=== PATIENT | female | born 1985 ===

== ENCOUNTER 2022-12-05 06:16 | Day surgery (SDC) | payer OTHER ==
[~2022-12-05 06:16] MED LIST: TRISPRINTEC PO
[2022-12-05] MEDS ORDERED: NAPR500T14 PO (08:34)
[2022-12-05] MEDS ORDERED: MORGIDOX100 MG PO (08:34)
== END 2022-12-05 13:25 | disposition home or self-care (01) ==
LOC: CIR.AMB 06:16
PROVIDERS: ATTEND Obstetrics & Gynecology
DX: N93.8 Other specified abnormal uterine and vaginal bleeding (principal); D25.0 Submucous leiomyoma of uterus; N84.0 Polyp of corpus uteri; Z20.822 Contact with and (suspected) exposure to COVID-19

== ENCOUNTER 2025-02-28 08:42 | Outpatient (CLI) | payer OTHER ==
[~2025-02-28 08:42] MED LIST changes: +MORGIDOX100 MG PO; +NAPR500T14 PO
== END 2025-02-28 08:49 | disposition home or self-care (01) ==
LOC: SONOGRAMA 08:42
PROVIDERS: ATTEND Obstetrics & Gynecology Reproductive Endocrinology
DX: N93.8 Other specified abnormal uterine and vaginal bleeding (principal)